=== PATIENT | male | born 1990 | race Caucasian/White ===

== ENCOUNTER 2016-05-04 09:00 | Day surgery (SDC) | payer BC ==
[~2016-05-04 09:00] MED LIST: Buffered Lidocaine 1% SYR 3ML* 3 ML/SYR SYRINGE INTRADERM ONE
[2016-05-04] MEDS ORDERED: fentaNYL* 50 MCG/ML 2 ML VIAL (100 MCG VIAL) ONE (09:11)
[2016-05-04] MEDS ORDERED: Midazolam* 1 MG/ML 5 ML VIAL (5 MG) ONE (09:11)
[2016-05-04] MEDS ORDERED: ceFAZolin 2 GM PREMIX (*) 2 GM/50 ML BAG IVPB ONE (09:20)
[2016-05-04] MEDS ORDERED: Buffered Lidocaine 1% SYR 3ML* 3 ML/SYR SYRINGE ONE (09:20)
[2016-05-04] MEDS ORDERED: Bupivacaine 0.5% SDV PF* 30 ML VIAL ONE (09:35)
[2016-05-04] MEDS ORDERED: Chloroprocaine 2%* 20 ML VIAL ONE (10:31)
[2016-05-04] MEDS ORDERED: HYDROmorphone INJ* 1 MG/ML CARPUJECT SYRINGE IV PRN (11:27)
[2016-05-04] MEDS ORDERED: Ondansetron INJ* 2 MG/ML VIAL IV PRN (11:27)
[2016-05-04] MEDS ORDERED: oxyCODONE TAB* 5 MG TAB ONE (13:00)
[2016-05-04 13:11] VITALS: BP 113/61
--- NOTE | 2016-05-05 01:42 | OP ---
DATE OF OPERATION: 05/04/16 - SDS DATE OF : 86 SURGEON: Mahin Levin MD HORSE BREAKER: Michelle Martinez PA-C ANESTHESIOLOGIST: Candace Funez MD ANESTHESIA: Spinal PRE-OP DIAGNOSIS: Left Achilles rupture. POST-OP DIAGNOSIS: Left Achilles rupture. OPERATIVE PROCEDURE: Open repair, left Achilles. DESCRIPTION OF PROCEDURE: The patient was taken to the operating room, where a longitudinal incision was made medial to the Achilles. The tear itself was full thickness and about 4 to 5 cm above the insertion point. A double-strand weave of #1 Biosyn was used to repair the rupture. Basically, the entry point for each was about 3 to 4 cm away from the rupture, one proximal, one distal, both wove through the respective limbs entering the other stump across and back , which left a box suture with two strands proximal, two strands distal, both were tied over the fascia thus pulling the tendon together over scaffolding of the Biosyn. We then irrigated thoroughly closing the subcu with 2-0 Vicryl and annabella for the skin and a compression dressing plaster splint applied. [id number]/[facility] #: [id number] MTDD
== END 2016-05-04 13:05 | disposition home or self-care (01) ==
LOC: OR 09:00
PROVIDERS: ATTEND Orthopaedic Surgery
DX: S86.012A Strain of left Achilles tendon, initial encounter (principal); X50.0XXA Overexertion from strenuous movement or load, initial encounter; Y93.66 Activity, soccer; Y92.322 Soccer field as the place of occurrence of the external cause
CPT/HCPCS: A9270-GY; J0690; J2250; J2400; J3010